=== PATIENT | male | born 1985 | race Caucasian/White ===

== ENCOUNTER 2017-12-07 19:16 | Emergency (ER) | payer BC ==
[2017-12-07 19:38] VITALS: BP 134/83
--- NOTE | 2017-12-07 19:46 | UC ---
Skin Complaint HPI - HPI Summary HPI Summary: 32 y/o female presents to the urgent care c/o b/l forearms and left knee w/ a rash w/ swelling and itchiness since 12/02/2017. Pt reports she has changing the floor tiles in his bathroom and he thinks he is allergic to the grout he used. Pt though it waas going to resolve, but now his hands are swollen and since his has been scratching the left forearm looks infected. Pt noticed today some hives around neck. Pt denies SOB, difficulty breathing, ST, chest pain, abdominal pain, N/V/D. - History of Current Complaint Chief Complaint: UCAllergicReaction Time Seen by Provider: 12/07/17 19:45 Stated Complaint: ALLERGIC REACTION Hx Obtained From: Patient Onset/Duration: Gradual Onset, Lasting Days - 5 days, Still Present, Worse Since - yesterday Skin Exposure Onset/Duration: Days Ago - 5 days Timing: Constant Onset Severity: Mild Current Severity: Moderate Pain Intensity: 2 Pain Scale Used: 0-10 Numeric Location: Hand (Right) - and RT forearm, Hand (Left) - and left forearm, Other - left knee and neck Character: Swelling, Pruritus, Hives, Redness Aggravating Factor(s): Clothing, Touch Alleviating Factor(s): OTC Creams/Salves Associated Signs & Symptoms: Positive: Rash. Negative: Difficulty Breathing, Fever, Chest Pain, Hoarseness, Throat Tightening, Drainage, Tenderness, Red Streaks Related History: Possible Reaction to: Environmental Exposure - Allergy/Home Medications Allergies/Adverse Reactions: Allergies Allergy/AdvReac Type Severity Reaction Status Date / Time No Known Allergies Allergy Verified 12/07/17 19:38 Review of Systems Constitutional: Negative Skin: Rash - B/L forearms, neck and left knee, Other - itchiness ENT: Negative Respiratory: Negative Cardiovascular: Negative Gastrointestinal: Negative Genitourinary: Negative Motor: Negative Neurovascular: Negative Musculoskeletal: Negative Neurological: Negative Psychological: Negative Is Patient Immunocompromised?: No All Other Systems Reviewed And Are Negative: Yes PMH/Surg Hx/FS Hx/Imm Hx Previously Healthy: Yes - Pt denies PMHX - Surgical History Surgical History: None - Family History Known Family History: Positive: Renal Disease - alport renal disease - Social History Occupation: Employed Full-time Lives: With Family Alcohol Use: None Substance Use Type: None Smoking Status (MU): Former Smoker Type: Cigarettes Amount Used/How Often: / ppd - Immunization History Most Recent Tetanus Shot: unknown Physical Exam - Summary Physical Exam Summary: Vital Signs Reviewed: Yes General: well developed, well nourished male sitting in the examining table w/ o any apparent distress. Eyes: Positive: Conjunctiva Clear - PERRLA, EOMI ENT: Positive: Normal ENT inspection, Hearing grossly normal, Pharynx normal, TMs normal Neck: Positive: Supple, Nontender, No Lymphadenopathy Respiratory: Positive: Chest nontender, Lungs clear, Normal breath sounds Cardiovascular: Positive: RRR, No Murmur, Pulses Normal Abdomen Description: Positive: Nontender, No Organomegaly, Soft. Negative: CVA Tenderness (R), CVA Tenderness (L) Bowel Sounds: Positive: Present Musculoskeletal: Positive: Strength Intact, ROM Intact, No Edema Neurological Exam: Normal Psychological Exam: Normal Skin: Positive: rashes - B/L arms, neck and left knee w/ erythematous maculopapular eruption. Mild swelling in both hands and forearms, non tender to palpation, RT ventral side of LF forearm w/ some yellowish crusting, non tender to palpation. Neck w/ scattered hives Triage Information Reviewed: Yes Vital Signs: Initial Vital Signs Temp 98.4 F 12/07/17 19:34 Pulse 65 12/07/17 19:34 Resp 16 12/07/17 19:34 BP 134/83 12/07/17 19:34 Pulse Ox 98 12/07/17 19:34 Course/Dx - Course Course Of Treatment: 32 y/o female presents to the urgent care c/o b/l forearms and left knee w/ a rash w/ swelling and itchiness since 12/02/2017. Pt reports she has changing the floor tiles in his bathroom and he thinks he is allergic to the grout he used. Pt though it waas going to resolve, but now his hands are swollen and since his has been scratching the left forearm looks infected. Pt noticed today some hives around neck. Pt denies SOB, difficulty breathing, ST, chest pain, abdominal pain, N/V/D. Hx obtained. Pt w/ a contact dermatitis on B/L forearms, neck and left knee w/ mild co-infection on the left forearm on examiantion. Pt Given Methylprednisolone IM inj by nurse. Pt tolerated well IM inj. Pt RX Prednisone PO taper dose, Caladryl topical lotion, Benadryl PO and Bacitracin topical cream to alleviate symptoms. D/C instructions explained. Pt understood and agreed w/ plan of care and left the clinic ambulating and hemodynamically stable. - Differential Diagnoses - Skin Complaint Differential Diagnoses: Allergic Reaction, Contact Dermatitis, Local Allergic Reaction, Urticaria - Diagnoses Provider Diagnoses: 1-Acute Contact dermatitis. 2- Local Allergic reaction Discharge - Sign-Out/Discharge Documenting (check all that apply): Discharge - Discharge Plan Condition: Stable Disposition: HOME Prescriptions: Bacitracin OINTMENT* 1 applic TOPICAL BID #1 tube Calamine/Pramoxine LOTION* [Caladryl LOTION*] 1 applic .SEE ORDER BID #1 btl diPHENhydraMINE PO* [Benadryl PO 25 MG TAB*] 25 mg PO Q6H PRN #20 tab PRN Reason: pruritus predniSONE TAB* [Deltasone TAB*] 20 mg PO DAILY #11 tab Patient Education Materials: Contact Dermatitis (ED), Acute Rash (ED) Referrals: [facility]ERR[facility] [Outside] - 3 Days Additional Instructions: 1-Please Take Prednisone PO as directed starting tomorrow. First dose given here at the clinic. 2- Take Benadryl PO and apply Caladryl topical cream to alleviate itchiness. 3- Apply Bacitracin Oint topical cream as directed on the co-infected area. 4-If symptoms do not improve or worsen please f/u with your PCP 2-3 days or return to the urgent care for further evaluation and treatment. - Billing Disposition and Condition Condition: STABLE Disposition: HOME
[2017-12-07] MEDS ORDERED: methylPREDNISolone 125 MG* 2 ML VIAL IM ONE (19:56)
== END 2017-12-07 20:10 | disposition home or self-care (01) ==
LOC: UCEAST 19:16
DX: L23.9 Allergic contact dermatitis, unspecified cause (principal); Z87.891 Personal history of nicotine dependence
CPT/HCPCS: 96372; 99212; G0463; J2930

== ENCOUNTER 2019-01-31 17:41 | Emergency (ER) | payer BC ==
[2019-01-31 17:56] VITALS: BP 144/92
--- NOTE | 2019-01-31 18:02 | UC ---
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 He states he injured it while running the bases playing softball. He is unable to take anti-inflammatory medications because of his Alport syndrome. He has had some occasional popping and locates the pain in both sides of the joint. He's had minor swelling as well. 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 - History of Current Complaint Chief Complaint: UCLowerExtremity Stated Complaint: R KNEE INJURY Time Seen by Provider: 01/31/19 17:47 Hx Obtained From: Patient Pain Intensity: 8 - Allergies/Home Medications Allergies/Adverse Reactions: Allergies Allergy/AdvReac Type Severity Reaction Status Date / Time NSAIDS (Non-Steroidal Allergy Severe Alports Verified 01/31/19 17:56 Anti-Inflamma Disease steroids Allergy Alports Uncoded 01/31/19 17:56 Disease PMH/Surg Hx/FS Hx/Imm Hx GI/ History: Renal Disease - Alport syndrome - Surgical History Surgical History: None - Family History Known Family History: Positive: Renal Disease - alport renal disease - Social History Occupation: Employed Full-time Alcohol Use: None Substance Use Type: None Smoking Status (MU): Former Smoker Type: Cigarettes Amount Used/How Often: 1/4 ppd - Immunization History Most Recent Tetanus Shot: unknown Review of Systems All Other Systems Reviewed And Are Negative: Yes Constitutional: Positive: Negative Skin: Positive: Negative Neurovascular: Positive: Negative Musculoskeletal: Positive: Arthralgia, Decreased ROM, Edema. Negative: Calf Tenderness, Myalgia Physical Exam Triage Information Reviewed: Yes Appearance: Well-Appearing, No Pain Distress, Well-Nourished Vital Signs: Initial Vital Signs Temp 99.3 F 01/31/19 17:50 Pulse 66 01/31/19 17:50 Resp 16 01/31/19 17:50 BP 144/92 01/31/19 17:50 Pulse Ox 98 01/31/19 17:50 Vital Signs Reviewed: Yes Eye Exam: Normal ENT: Positive: Hearing grossly normal Respiratory: Positive: Lungs clear Cardiovascular: Positive: RRR Musculoskeletal: Positive: Other: - Right knee with perhaps slight effusion. Ligamentous exam is stable. Negative Reena. Mild limitation in flexion. Weight-bears normally. Neurological Exam: Normal Skin Exam: Normal Diagnostics - Radiology right knee Radiology Interpretation Completed By: ED Physician - Negative for fracture Lower Extremity Course/Dx - Course Course Of Treatment: Minimal findings on exam. X-rays negative. Treated sprain. Avoid NSAIDs, steroids due to a renal disease. Tylenol as needed, follow-up with physical therapy, ortho. - Differential Dx/Diagnosis Differential Diagnosis/HQI/PQRI: Fracture (Closed), Sprain, Strain Provider Diagnosis: Right knee sprain Discharge - Sign-Out/Discharge Documenting (check all that apply): Patient Departure All imaging exams completed and their final reports reviewed: No - Discharge Plan Condition: Improved Disposition: HOME Patient Education Materials: Knee Sprain (ED) Referrals: Sonya Onofre MD [Medical Doctor] - Additional Instructions: Ice, range of motion exercises, weight bear as tolerated. CEASAR wrap for comfort. No strenuous exercise. Physical therapy referral given. Tylenol for discomfort. Follow-up with orthopedics if still having symptoms in 2 weeks' time. - Billing Disposition and Condition Condition: IMPROVED Disposition: Home
--- NOTE | 2019-02-01 10:14 | UC ---
- Progress Note Progress Note: XR: IMPRESSION: JOINT EFFUSION, NO FRACTURE IS SEEN. IF THE PATIENT'S SYMPTOMS PERSIST RECOMMEND FOLLOW-UP IMAGING. No change in plan of care Course/Dx - Diagnoses Provider Diagnoses: Right knee sprain Discharge - Sign-Out/Discharge Documenting (check all that apply): Post-Discharge Follow Up All imaging exams completed and their final reports reviewed: Yes - Discharge Plan Condition: Improved Disposition: HOME Patient Education Materials: Knee Sprain (ED) Referrals: Sonya Onofre MD [Medical Doctor] - Additional Instructions: Ice, range of motion exercises, weight bear as tolerated. CEASAR wrap for comfort. No strenuous exercise. Physical therapy referral given. Tylenol for discomfort. Follow-up with orthopedics if still having symptoms in 2 weeks' time. - Billing Disposition and Condition Condition: IMPROVED Disposition: Home
== END 2019-01-31 18:35 | disposition home or self-care (01) ==
LOC: UCEAST 17:41
DX: S83.91XA Sprain of unspecified site of right knee, initial encounter (principal); X58.XXXA Exposure to other specified factors, initial encounter; Y93.64 Activity, baseball; Y92.320 Baseball field as the place of occurrence of the external cause; Y99.8 Other external cause status; Z87.891 Personal history of nicotine dependence
CPT/HCPCS: 99211; G0463